=== PATIENT | male | born 1980 | race African-American/Black ===

== ENCOUNTER 2018-12-08 22:15 | Emergency (ER) | payer OTHER, SELFPAY ==
[~2018-12-08] VITALS: Ht 170.2 cm; Wt 74.8 kg
[2018-12-08] MEDS ORDERED: OMEPRAZOLE40 M1 ORAL (22:24)
[2018-12-08] MEDS ORDERED: HYDROcodone/Acetamin 5/325 tab ORAL ONE (22:45)
--- NOTE | 2018-12-08 22:45 | NUR ---
ED Nurse Note: Pt was sent down for X-Ray.
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
--- NOTE | 2018-12-08 22:57 | NUR ---
ED Nurse Note: Pt returned from X-Ray.
[2018-12-08 22:58] VITALS: BP 146/97
--- NOTE | 2018-12-08 23:09 | NUR ---
HAND-OFF: Report given to Reyes RN and endorsed care.
--- NOTE | 2018-12-08 23:10 | NUR ---
ED Nurse Note: Received Report from Lucia/KAY. Pt is A/O X 4. VSS, will continue to monitor.
[2018-12-08] MEDS ORDERED: IBUPROFEN600 MG ORAL (23:35)
[2018-12-08] MEDS ORDERED: HYDROCODON-ACE1 EA15 ORAL (23:35)
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
[2018-12-08 23:42] VITALS: BP 141/92
--- NOTE | 2018-12-08 23:42 | NUR ---
ER DISCHARGE NOTE: Patient is cleared to be discharged per Dr. Alvarado. X-ray done, no fracture was noted at this time. Pain meds given as ordered. Pt is aox4 on room air with stable vital signs. Pt was given dc and prescription instructions, pt was able to verbalize understanding. Pt's ID band removed. pt is able to ambulate with steady gait, pt took all belongings. Accompanied by his family.
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
== END 2018-12-08 23:42 | disposition home or self-care (01) ==
LOC: EMR 22:26
DX: S09.90XA Unspecified injury of head, initial encounter (principal); S16.1XXA Strain of muscle, fascia and tendon at neck level, initial encounter; I10 Essential (primary) hypertension; K21.9 Gastro-esophageal reflux disease without esophagitis; V48.5XXA Car driver injured in noncollision transport accident in traffic accident, initial encounter; Y92.488 Other paved roadways as the place of occurrence of the external cause; Z86.73 Personal history of transient ischemic attack (TIA), and cerebral infarction without residual deficits
CPT/HCPCS: 70450; 72125; 99284

== ENCOUNTER 2019-03-15 09:15 | Emergency (ER) | payer OTHER ==
[~2019-03-15] VITALS: Ht 170.2 cm; Wt 77.1 kg
[~2019-03-15 09:15] MED LIST: HYDROCODON-ACE1 EA15 ORAL; IBUPROFEN600 MG ORAL; OMEPRAZOLE40 M1 ORAL
--- NOTE | 2019-03-15 09:30 | NUR ---
ED Nurse Note: Pt came in from home due to L eye pain, teary since 0 last night. No recent injury to eyes. Pain 9/10 vicky. Pt tried using eye drop, non - specific but symptoms still remain the same. Visual accuity bilateral 20/30. AOx4, VSS. Will cont to monitor.
[2019-03-15 09:32] VITALS: BP 115/74
[2019-03-15] MEDS ORDERED: Fluorescein Strips LEFT EYE ONE (09:45)
[2019-03-15] MEDS ORDERED: Tetracaine 0.5% Opth 4ml Soln LEFT EYE ONE (09:45)
[2019-03-15 10:41] VITALS: BP 119/64
[2019-03-15] MEDS ORDERED: OCUFLOX5 ML LEFT EYE (10:47)
[2019-03-15 10:55] VITALS: BP 119/64
--- NOTE | 2019-03-15 10:55 | NUR ---
ER DISCHARGE NOTE: Patient is cleared to be discharged per ERMD, pt is aox4, on room air, with stable vital signs. pt was given dc and prescription instructions, pt was able to verbalize understanding, pt id band removed. pt is able to ambulate with steady gait. pt took all belongings.
--- NOTE | 2019-03-16 07:42 | Emergency Room Report ---
History of Present Illness General Chief Complaint: Eye Problems Source: Patient Present Illness HPI 39-year-old male presents ED for evaluation. Complaining of pain to his left eye. States that last night he had some dye in his hair into his left eye. Describes a burning sensation, 5 out of 10, nonradiating. Denies photophobia or blurry vision. Denies any discharge. No other aggravating relieving factors. Denies any other associated symptoms Allergies: Coded Allergies: PENICILLINS (Verified Allergy, Unknown, 06/22/12) Patient History Past Medical History: HTN, GERD, CVA/TIA Past Surgical History: none Pertinent Family History: none Social History: Denies: smoking, alcohol use, drug use Immunizations: UTD Reviewed Nursing Documentation: PMH: Agreed; PSxH: Agreed Nursing Documentation-PMH Hx Hypertension: Yes Hx Gastrointestinal Problems: Yes - gerd Hx Neurological Problems: Yes - TIA Review of Systems All Other Systems: negative except mentioned in HPI Physical Exam Vital Signs Date Time Temp Pulse Resp B/P (MAP) Pulse Ox O2 Delivery O2 Flow Rate FiO2 03/15/19 09:21 98.2 72 18 111/72 (85) 97 Room Air Sp02 EP Interpretation: reviewed, normal General Appearance: no apparent distress, alert, GCS 15, non-toxic Head: normocephalic Eyes: right eye normal inspection; left eye Scleral Injection; bilateral eye PERRL, bilateral eye EOMI, bilateral eye visual acuity ENT: hearing grossly normal, normal pharynx, no angioedema, normal voice Neck: normal inspection Respiratory: normal inspection Cardiovascular #1: normal inspection Gastrointestinal: normal inspection Rectal: deferred Genitourinary: no CVA tenderness Musculoskeletal: normal inspection Neurologic: alert, oriented x3, responsive, motor strength/tone normal, sensory intact, speech normal Psychiatric: normal inspection Skin: normal inspection Lymphatic: normal inspection Medical Decision Making Diagnostic Impression: Primary Impression: Conjunctivitis Qualified Codes: H10.32 - Unspecified acute conjunctivitis, left eye ER Course Hospital Course 39-year-old male presents to ED with left eye pain Differential diagnoses include: conjunctivitis, traumatic iritis, foreign body, corneal abrasion Clinical course Patient placed on stretcher. After initial history, I applied tetracaine and Fluorescin to the affected eye. Using Wood's lamp I examined the eyes, no evidence of corneal abrasion. I inverted eyelid and saw no evidence of foreign body. discussed findings with patient. Will prescribe reflux. Safe for discharge with close outpatient follow-up. Will provide optho referrals Diagnosis -conjuntivitis Stable and discharged to home with prescription for Ocuflox. Followup with PMD/ Optho. Return to ED if symptoms recur or worsen Last Vital Signs Date Time Temp Pulse Resp B/P (MAP) Pulse Ox O2 Delivery O2 Flow Rate FiO2 03/15/19 10:55 98.2 79 21 119/64 97 Room Air Status: improved Disposition: HOME, SELF-CARE Condition: Stable Scripts Ofloxacin (OCUFLOX) 5 Ml Drops 1 DROP LEFT EYE QID for 7 Days, ML Prov: Reji Perry MD 03/15/19 Referrals: Murali Chapin MD, Maziar M.D. MD Patient Instructions: Bacterial Conjunctivitis, Aslt-no-Qgca Reji Perry MD Mar 16, 2019 07:42
== END 2019-03-15 10:55 | disposition home or self-care (01) ==
LOC: EMR 09:57
DX: H10.32 Unspecified acute conjunctivitis, left eye (principal); I10 Essential (primary) hypertension; K21.9 Gastro-esophageal reflux disease without esophagitis; Z86.73 Personal history of transient ischemic attack (TIA), and cerebral infarction without residual deficits; Z88.0 Allergy status to penicillin
CPT/HCPCS: 99282